=== PATIENT | female | born 1960 | race Caucasian/White ===

== ENCOUNTER 2017-06-22 09:10 | Emergency (ER) | payer BC, OTHER ==
[~2017-06-22] VITALS: Ht 185.4 cm; Wt 95.7 kg
--- NOTE | ~2017-06-22 | EKG ---
[facility] [place] [address] ELECTROCARDIOGRAM REPORT Name: KAREN NAM Room #: [facility] [id number] Admission: 06/22/17 Attend Phys: Discharge: 06/22/17 Date of : 60 Report #: [id number] THIS REPORT FOR: //name// [facility] ED Test Date: 2017-06-22 Test Time: 10:08:33 Pat Name: KAREN NAM Department: Room: Gender: F Letter Of Credit Clerk: Juan SEGUNDO : 1960 Requested By: Florence Long Order Number: [id number] MD: William Coronado Measurements Intervals [place] Rate: 75 P: 59 WY: 155 QRS: 33 QRSD: 90 T: 61 QT: 416 QTc: 465 Interpretive Statements Sinus rhythm Poor R wave progression Baseline wander in lead(s) V3 Compared to ECG 08/13/2010 10:41:00 No significant change was found Electronically Signed On 06-22-2017 18:00:09 CDT by William Coronado [email or web address] <ELECTRONICALLY SIGNED> By: William Coronado MD, [facility] 06/22/17 1800 07 William Coronado MD, [facility] /EPI
[2017-06-22] MEDS ORDERED: PRINIVIL20 MG PO (09:26)
[2017-06-22] MEDS ORDERED: VENLAFAXIN75 MG/1 T2 PO (09:27)
[2017-06-22 10:21] LABS: ABSOLUTE NEUTROPHILS 5.8 thou/uL (1.4-8.2); BASOPHILS 0.6 % (0.0-2.0); EOSINOPHILS 0.9 % (0.0-3.0); HEMATOCRIT 50.2 % (37.0-47.0); HEMOGLOBIN 17.6 gm/dL (12.0-15.0); LYMPHOCYTES 19.7 % (24.0-44.0); MCH 33.7 pg (26.0-34.0); MCV 96.3 fL (80.0-100.0); MONOCYTES 5.6 % (1.0-8.0); PLATELET COUNT 257 thou/uL (150-400); POLYS 73.2 % (36.0-66.0); RBC 5.22 mil/uL (4.20-5.00); RDW 13.3 % (10.5-14.5)
[2017-06-22 10:22] LABS: MANUAL DIFF NO
[2017-06-22 10:31] LABS: ANION GAP 17 mmol/L (7-16); BUN 15 mg/dL (7-18); CALCIUM 9.9 mg/dL (8.5-10.1); CHLORIDE 98 mmol/L (98-107); CO2 24 mmol/L (21-32); CREATININE 1.1 mg/dL (0.6-1.0); GLUCOSE 93 mg/dL (74-106); SODIUM 139 mmol/L (136-145)
[2017-06-22 10:41] LABS: ALBUMIN 4.1 g/dL (3.4-5.0); ALKALINE PHOSPHATASE 81 U/L (46-116); SGOT 54 U/L (15-37); SGPT 70 U/L (30-65); TOTAL BILIRUBIN 0.7 mg/dL (<0.1-1.0); TOTAL PROTEIN 7.5 g/dL (6.4-8.2); TROPONIN-I < 0.04 ng/mL (<0.04-0.07)
[2017-06-22 11:55] LABS: URINE BILIRUBIN NEGATIVE (Negative); URINE BLOOD TRACE (Negative); URINE COLOR YELLOW; URINE GLUCOSE-RANDOM* NEGATIVE (Negative); URINE KETONES 1+ (Negative); URINE NITRITE NEGATIVE (Negative); URINE PROTEIN (DIPSTICK) NEGATIVE (Negative); URINE SPECIFIC GRAVITY <= 1.005 (1.003-1.035); URINE UROBILINOGEN 0.2 E.U./dl (0.2-1.0)
[2017-06-22 12:59] VITALS: BP 112/70
== END 2017-06-22 13:10 | disposition home or self-care (01) ==
LOC: ER 09:10
PROVIDERS: Nurse Practitioner Family
DX: E86.0 Dehydration (principal); I95.1 Orthostatic hypotension; I10 Essential (primary) hypertension; F10.99 Alcohol use, unspecified with unspecified alcohol-induced disorder; Z96.652 Presence of left artificial knee joint